=== PATIENT | female | born 1945 | race Caucasian/White ===

== ENCOUNTER 2017-01-07 09:52 | Emergency (ER) | payer MEDICARE, OTHER ==
[2017-01-07 09:58] VITALS: BP 129/51
[2017-01-07] MEDS ORDERED: OXYCODONE-ACETAMINOPHEN 5-325 MG TABLET PO ONE (10:32)
[2017-01-07] MEDS ORDERED: ONDANSETRON 4 MG TAB.RAPDIS PO ONE (10:32)
--- NOTE | 2017-01-07 10:34 | ER Document Report ---
HPI - HPI Patient complains to provider of: posterior left knee pain Onset: Other - 1 week Onset/Duration: Persistent, Worse Quality of pain: Achy Pain Level: 4 Context: 65-year-old female developed posterior left knee pain while traveling back from a road trip to [place]. It was aching in her left knee and her left hip. No low back pain. This morning when she stepped up with her right foot onto a stool and brought her left leg up she felt something very painful and sharp in her left knee like it wasn't fitting properly. Now she cannot extend it completely due to pain nor can she bear weight on it due to the pain. History of right lung cancer 2004. No chest pain or shortness of breath. No leg swelling. No history of PE or DVT although her mother had DVT. Associated Symptoms: None Exacerbated by: Denies Relieved by: Denies Similar symptoms previously: No Recently seen / treated by doctor: No - ROS ROS below otherwise negative: Yes Systems Reviewed and Negative: Yes All other systems reviewed and negative - REPRODUCTIVE Reproductive: DENIES: : - DERM Skin Color: Normal Past Medical History - General Information source: Patient - Social History Smoking Status: Former Smoker Frequency of alcohol use: None Drug Abuse: None Lives with: Spouse/Significant other Family History: Reviewed & Not Pertinent - Past Medical History Cardiac Medical History: Reports: Hx Hypertension Endocrine Medical History: Reports: Hx Diabetes Mellitus Type 1 Renal/ Medical History: Denies: Hx Peritoneal Dialysis Malignancy Medical History: Reports: Hx Lung Cancer GI Medical History: Reports: Hx Ulcer Past Surgical History: Reports: Hx Cholecystectomy, Hx Hysterectomy, Hx Tonsillectomy, Other - Partial right pneumonectomy - Immunizations Hx Diphtheria, Pertussis, Tetanus Vaccination: Yes Vertical Provider Document - CONSTITUTIONAL Agree With Documented VS: Yes Exam Limitations: No Limitations - INFECTION CONTROL TRAVEL OUTSIDE OF THE [place] IN LAST 30 DAYS: No - HEENT HEENT: Normocephalic - NECK Neck: Supple - RESPIRATORY Respiratory: Breath Sounds Normal, No Respiratory Distress O2 Sat by Pulse Oximetry: 97 - CARDIOVASCULAR Cardiovascular: Regular Rate, Regular Rhythm - MUSCULOSKELETAL/EXTREMETIES Musculoskeletal/Extremeties: Tender, No Edema, Edema. negative: Eccymosis Notes: Posterior left medial knee tender without being able to identify which structure is tender, unable to extend fully due to posterior knee pain. No hip tenderness. No low back tenderness. 2+ PT - NEURO Level of Consciousness: Awake, Alert - DERM Integumentary: Warm, Dry, No Rash Course - Re-evaluation Re-evalutation: 01/07/17 X-rays negative, the venous Doppler ultrasound was also negative. She states that the compressive wrap is helpful - Vital Signs Vital signs: Temp Pulse Resp BP Pulse Ox 97.9 F 85 16 129/51 H 97 01/07/17 09:54 01/07/17 09:54 01/07/17 09:54 01/07/17 09:54 01/07/17 09:54 Procedures - Immobilization Left Knee Time completed: 14:00 Immobilizer type: Rigo wrap Performed by: PCT Post-Proc Neuro Vasc Exam: Normal Alignment checked and good: Yes Discharge - Discharge Clinical Impression: Left knee sprain Qualifiers: Encounter type: initial encounter Involved ligament of knee: unspecified ligament Qualified Code(s): S83.92XA - Sprain of unspecified site of left knee, initial encounter Condition: Good Disposition: HOME, SELF-CARE Instructions: Suspected Internal Knee Injury ([facility]), Oral Narcotic Medication ( [facility]), Sprained Knee ([facility]), Rigo Wrap ([facility]) Additional Instructions: to er if worse compression rigo wrap for comfort use the walker see orthopedic doctor for follow up Cholo Westbrook NP/Dr. Westbrook should be able to order further testin if indicated (like MRI of the knee) Please complete the patient satisfaction survey if you get one, and return it.. If you do not receive a survey, then you can go to the [facility] website, [email or web address] and place your comments about your very good care. Thank you very much. It was a pleasure being your medical provider today. Prescriptions: Hydrocodone Bit/Acetaminophen [Hydrocodon-Acetaminophen 5-325] 1 - 2 each PO Q4HP PRN #20 tablet PRN Reason: Walker [Folding Walker] 1 each MC ASDIR PRN #1 each PRN Reason: Referrals: HARI WESTBROOK NP [Primary Care Provider] - Follow up in 3-5 days
[2017-01-07] MEDS ORDERED: HYDROCODONE/ACETAMINOPHEN 5-325 MG TABLET PO ONE (11:07)
== END 2017-01-07 14:17 | disposition home or self-care (01) ==
LOC: ER 09:52
DX: S83.92XA Sprain of unspecified site of left knee, initial encounter (principal); X58.XXXA Exposure to other specified factors, initial encounter; E10.9 Type 1 diabetes mellitus without complications; I10 Essential (primary) hypertension; Z85.118 Personal history of other malignant neoplasm of bronchus and lung; Z82.49 Family history of ischemic heart disease and other diseases of the circulatory system; Z87.891 Personal history of nicotine dependence
CPT/HCPCS: 99284; 93971; 73562; A9270 ×2; S0119

== ENCOUNTER → 2017-01-10 | Outpatient (CLI) | payer MEDICARE, OTHER | LOC: RAD 12:34 | PROVIDERS: ATTEND Nurse Practitioner Primary Care | DX: S89.92XA Unspecified injury of left lower leg, initial encounter (principal); M25.562 Pain in left knee; M25.462 Effusion, left knee; X58.XXXA Exposure to other specified factors, initial encounter ==

== ENCOUNTER 2018-09-12 11:49 | Emergency (ER) | payer MEDICARE, OTHER ==
--- NOTE | 2018-09-12 12:46 | ER Document Report ---
ED Medical Screen (RME) - General Chief Complaint: Foot Pain Stated Complaint: FOOT PAIN Time Seen by Provider: 09/12/18 12:36 Notes: This 73-year-old female diabetic was sent to the emergency room for further evaluation for left foot pain for the last 2 weeks with some erythema. She has had x-ray and ultrasound which were unremarkable. She had an MRI done today over at [facility]. She has a CD but does not have a report. She reports that she has had some fevers off and on. I have greeted and performed a rapid initial assessment of this patient. A comprehensive ED assessment and evaluation of the patient, analysis of test results and completion of the medical decision making process will be conducted by additional ED providers. TRAVEL OUTSIDE OF THE U.[place] IN LAST 30 DAYS: No - Related Data Allergies/Adverse Reactions: oxycodone Adverse Reaction (Verified 01/07/17 11:00) VOMITING Past Medical History - Past Medical History Cardiac Medical History: Reports: Hx Hypertension Denies: Hx Heart Attack Pulmonary Medical History: Denies: Hx Asthma Neurological Medical History: Denies: Hx Cerebrovascular Accident, Hx Seizures Endocrine Medical History: Reports: Hx Diabetes Mellitus Type 1, Hx Diabetes Mellitus Type 2 Renal/ Medical History: Denies: Hx Peritoneal Dialysis Malignancy Medical History: Reports: Hx Lung Cancer GI Medical History: Reports: Hx Ulcer. Denies: Hx Hepatitis, Hx Hiatal Hernia Infectious Medical History: Denies: Hx Hepatitis Past Surgical History: Reports: Hx Cholecystectomy, Hx Hysterectomy, Hx Tonsillectomy, Other - Partial right pneumonectomy. Denies: Hx Mastectomy, Hx Open Heart Surgery, Hx Pacemaker - Immunizations Hx Diphtheria, Pertussis, Tetanus Vaccination: Yes Physical Exam - Vital signs Vitals: Temp Pulse Resp BP Pulse Ox 98.0 F 86 18 109/91 H 100 09/12/18 11:56 09/12/18 11:56 09/12/18 11:56 09/12/18 11:56 09/12/18 11:56 Course - Vital Signs Vital signs: Temp Pulse Resp BP Pulse Ox 98.0 F 86 18 109/91 H 100 09/12/18 11:56 09/12/18 11:56 09/12/18 11:56 09/12/18 11:56 09/12/18 11:56 Doctor's Discharge - Discharge Referrals: DARIANA,HARI, SURGICAL NURSE PRACTITIONER [Primary Care Provider] - Follow up as needed
--- NOTE | 2018-09-12 13:17 | ER Document Report ---
ED General - General Chief Complaint: Foot Pain Stated Complaint: FOOT PAIN Time Seen by Provider: 09/12/18 12:36 TRAVEL OUTSIDE OF THE U.[place] IN LAST 30 DAYS: No - HPI Notes: Patient is a 73-year-old female with a history of hypertension and type 2 diabetes who presents to the ED complaining of left foot swelling, pain, redness, warmth over the last 2 weeks. Patient states that she has been on Levaquin for 5 days without significant improvement. Patient states that she has been eating and drinking without any difficulty. She is urinating normally and having normal bowel movements. Patient has not noticed any red streaking, abscess, or purulence. Patient states that she was evaluated at [facility] and had an unremarkable x-ray as well as ultrasound to look for blood clotting. Patient states that she did have an MRI performed today, but does not have the formal report. She had this done at [facility]. No other concerns or complaints. Denies any headache, fever, URI, sore throat, chest pain, palpitations, syncope, cough, shortness of breath, wheeze, dyspnea, abdominal pain, nausea/vomiting/diarrhea, urinary retention, dysuria, hematuria. - Related Data Allergies/Adverse Reactions: oxycodone Adverse Reaction (Verified 01/07/17 11:00) VOMITING Past Medical History - Social History Smoking Status: Never Smoker Family History: Reviewed & Not Pertinent Patient has suicidal ideation: No Patient has homicidal ideation: No - Past Medical History Cardiac Medical History: Reports: Hx Hypertension Denies: Hx Heart Attack Pulmonary Medical History: Denies: Hx Asthma Neurological Medical History: Denies: Hx Cerebrovascular Accident, Hx Seizures Endocrine Medical History: Reports: Hx Diabetes Mellitus Type 1, Hx Diabetes Mellitus Type 2 Renal/ Medical History: Denies: Hx Peritoneal Dialysis Malignancy Medical History: Reports: Hx Lung Cancer GI Medical History: Reports: Hx Ulcer. Denies: Hx Hepatitis, Hx Hiatal Hernia Infectious Medical History: Denies: Hx Hepatitis Past Surgical History: Reports: Hx Cholecystectomy, Hx Hysterectomy, Hx Tonsillectomy, Other - Partial right pneumonectomy. Denies: Hx Mastectomy, Hx Open Heart Surgery, Hx Pacemaker - Immunizations Hx Diphtheria, Pertussis, Tetanus Vaccination: Yes Review of Systems - Review of Systems -: Yes All other systems reviewed and negative Physical Exam - Vital signs Vitals: Temp Pulse Resp BP Pulse Ox 98.0 F 86 18 109/91 H 100 09/12/18 11:56 09/12/18 11:56 09/12/18 11:56 09/12/18 11:56 09/12/18 11:56 - Notes Notes: PHYSICAL EXAMINATION: GENERAL: Well-appearing, well-nourished and in no acute distress. LUNGS: Breath sounds clear to auscultation bilaterally and equal. No wheezes rales or rhonchi. HEART: Regular rate and rhythm without murmurs, rubs, gallops. ABDOMEN: Soft, nontender, nondistended abdomen. No guarding, no rebound. No masses appreciated. Normal bowel sounds present. No CVA tenderness bilaterally. Musculoskeletal: Left foot: FROM to passive/active. Strength 5+/5. N/V intact distal. Extremities: No cyanosis, clubbing, or edema b/l. Peripheral pulses 2+. Capillary refill less than 3 seconds. NEUROLOGICAL: Normal speech, normal gait. PSYCH: Normal mood, normal affect. SKIN: left foot: the dorsal foot is erythemic, warm, 2+ pitting edema, and associated tenderness w/o obvious fluctuance/streaks/purulence Course - Re-evaluation Re-evalutation: 09/12/18 16:02 I did have to speak with a radiologist from [facility] who stated that there does appear to be some erosion at the 1st MTP joint either OA or gout with some inflammatory changes consistent with possible cellulitis. No osteomyelitis or septic joint. Dr. Gamble did evaluate the patient as well and agrees with cellulitis. Give 1g vanc and plan for discharge. Patient is an afebrile, well-hydrated, 73-year-old female who presents to the ED with cellulitis to the left foot which could be secondary to gout of the left first MTP joint. Vitals are acceptable without any significant tachycardia, tachypnea, or hypoxia. PE is otherwise unremarkable for any neurovascular compromise, obvious tendon/leg rupture, obvious fracture/dislocation, septic joint. Patient has not had any worsening symptoms since initial onset of the infection, but is without improvement. CBC, CMP are unremarkable for any acute pathology. Patient does not meet Sirs criteria. She is nontoxic-appearing and is tolerating p.o. without difficulty. MRI results as above. Patient is a well -controlled diabetic. Patient does present with renal failure so we will avoid NSAIDs at this time. We will try her on a 4-day course of prednisone 40 mg daily with the notion that her sugars may go up and patient needs to monitor very closely and avoid foods high glucose/carb/sugar. We will also send her home with a prescription for Keflex and Bactrim and she may discontinue her Levaquin. Recheck with your PCM in 2-3 days. Return to the emergency department with any other worsening/concerning symptoms as reviewed. Patient is in agreement. - Vital Signs Vital signs: Temp Pulse Resp BP Pulse Ox 98.0 F 85 18 110/85 100 09/12/18 13:44 09/12/18 13:44 09/12/18 13:44 09/12/18 13:44 09/12/18 13:44 - Laboratory Result Diagrams: 09/12/18 12:53 09/12/18 12:53 Laboratory results interpreted by me: 09/12/18 09/12/18 12:53 12:53 BUN 34 H Creatinine 1.68 H Est GFR ( Amer) 36 L Est GFR (Non-Af Amer) 30 L Urine Glucose (UA) >=500 H Discharge - Discharge Clinical Impression: Cellulitis of left foot Condition: Stable Disposition: HOME, SELF-CARE Instructions: Cellulitis ([facility]) Additional Instructions: Your sugar will be increased while on the steroid so you need to monitor closely and avoid foods and drinks that are high in sugar content. You may stop taking the Levaquin at this time as we will be giving you new antibiotics. Elevate your foot regularly Keep the skin clean Wash with soap and water Tylenol/ibuprofen if needed Triple antibiotic ointment daily for any break in the skin Take medication as directed Monitor for any worsening symptoms Recheck with your PCM in 2-3 days Return to the ED with any worsening symptoms and/or development of fever, headache, chest pain, palpitations, syncope, shortness of breath, trouble breathing, abdominal pain, n/v/d, abscess, purulent discharge, red streaks, worsening swelling, or other worsening symptoms that are concerning to you. Prescriptions: Cephalexin Monohydrate [Keflex 500 mg Capsule] 500 mg PO TID #30 capsule Prednisone [Deltasone 20 mg Tablet] 2 tab PO DAILY 4 Days #8 tablet Sulfamethoxazole/Trimethoprim [Bactrim Ds Tablet] 1 each PO BID #20 tablet Referrals: HARI WESTBROOK NP [Primary Care Provider] - 09/14/18
[2018-09-12 13:22] LABS: ABSOLUTE EOSINOPHILS # (AUTO) 0.4 10^3/uL (0.0-0.6); ABSOLUTE LYMPHOCYTES (AUTO) 2.1 10^3/uL (0.5-4.7); ABSOLUTE MONOCYTES (AUTO) 0.5 10^3/uL (0.1-1.4); ABSOLUTE NEUT (AUTO) 7.1 10^3/uL (1.7-8.2); BASOPHILS % (AUTO) 0.3 % (0-2); EOSINOPHILS % (AUTO) 3.9 % (0-6); HEMATOCRIT 38.6 % (36.0-47.0); MEAN CORPUSCULAR HEMOGLOBIN 29.1 pg (27.0-33.4); MEAN CORPUSCULAR HGB CONC 33.6 g/dL (32.0-36.0); MEAN CORPUSCULAR VOLUME 87 fl (80-97); MONOCYTES % (AUTO) 5.3 % (3-13); PLATELET COUNT 370 10^3/uL (150-450); RED BLOOD COUNT 4.45 10^6/uL (3.72-5.28); RED CELL DISTRIBUTION WIDTH 13.9 % (11.5-14.0); SEGMENTED NEUTROPHILS % (AUTO) 69.5 % (42-78); TOTAL CELLS COUNTED % (AUTO) 100 %; WHITE BLOOD COUNT 10.2 10^3/uL (4.0-10.5)
[2018-09-12 13:27] LABS: APPEARANCE,URINE CLEAR; BILIRUBIN,URINE NEGATIVE (NEGATIVE); COLOR,URINE COLORLESS; GLUCOSE, URINE >=500 mg/dL (NEGATIVE); KETONES,URINE NEGATIVE (NEGATIVE); LEUKOCYTE ESTERASE,URINE NEGATIVE (NEGATIVE); NITRITE,URINE NEGATIVE (NEGATIVE); PROTEIN,URINE NEGATIVE (NEGATIVE); URINE SPECIFIC GRAVITY 1.005; UROBILINOGEN,URINE NEGATIVE mg/dL (<2.0)
[2018-09-12 13:43] LABS: ALANINE AMINOTRANSFERASE 16 U/L (9-52); ALBUMIN 4.1 g/dL (3.5-5.0); ALKALINE PHOSPHATASE 104 U/L (38-126); ANION GAP 12 (5-19); ASPARTATE AMINO TRANSFERASE 20 U/L (14-36); BILIRUBIN,DIRECT 0.3 mg/dL (0.0-0.4); BILIRUBIN,TOTAL 0.5 mg/dL (0.2-1.3); BLOOD UREA NITROGEN 34 mg/dL (7-20); CARBON DIOXIDE 23 mmol/L (22-30); CHLORIDE 103 mmol/L (98-107); GLUCOSE 109 mg/dL (75-110); POTASSIUM 4.7 mmol/L (3.6-5.0); SODIUM 137.8 mmol/L (137-145); TOTAL PROTEIN 6.9 g/dL (6.3-8.2)
[2018-09-12] MEDS ORDERED: VANCOMYCIN HCL INJ 1000 MG VIAL IV ONE (15:54)
[2018-09-12 17:10] VITALS: BP 110/80
== END 2018-09-12 17:10 | disposition home or self-care (01) ==
LOC: ER 11:49
DX: L03.116 Cellulitis of left lower limb (principal); M79.672 Pain in left foot; M79.89 Other specified soft tissue disorders; I10 Essential (primary) hypertension; E11.9 Type 2 diabetes mellitus without complications; Z88.6 Allergy status to analgesic agent; Z85.118 Personal history of other malignant neoplasm of bronchus and lung
CPT/HCPCS: 36415; 87040; 85025; 85652; 80053; 81001; J3370

== ENCOUNTER → 2018-10-23 | Outpatient (CLI) | payer MEDICARE, OTHER ==
[2018-10-23 11:36] LABS: APPEARANCE,URINE CLEAR; BILIRUBIN,URINE NEGATIVE (NEGATIVE); COLOR,URINE STRAW; GLUCOSE, URINE >=500 mg/dL (NEGATIVE); KETONES,URINE NEGATIVE (NEGATIVE); LEUKOCYTE ESTERASE,URINE NEGATIVE (NEGATIVE); NITRITE,URINE NEGATIVE (NEGATIVE); PROTEIN,URINE NEGATIVE (NEGATIVE); URINE SPECIFIC GRAVITY 1.011; UROBILINOGEN,URINE NEGATIVE mg/dL (<2.0)
[2018-10-23 11:47] LABS: PHOSPHORUS 4.5 mg/dL (2.5-4.5)
[2018-10-24 14:29] LABS: MICROALBUMIN URINE <3.0 ug/mL (Not Estab.)
== END ==
LOC: OD 10:49
PROVIDERS: ATTEND Nurse Practitioner Primary Care
DX: E11.22 Type 2 diabetes mellitus with diabetic chronic kidney disease (principal); N18.3 Chronic kidney disease, stage 3 (moderate)
CPT/HCPCS: 36415; 81001; 82043; 82570; 83735; 83970; 84100

== ENCOUNTER → 2018-12-24 | Outpatient (CLI) | payer MEDICARE, OTHER ==
[2018-12-24 09:49] LABS: ALANINE AMINOTRANSFERASE 40 U/L (9-52); ALBUMIN 4.1 g/dL (3.5-5.0); ALKALINE PHOSPHATASE 104 U/L (38-126); ANION GAP 10 (5-19); ASPARTATE AMINO TRANSFERASE 24 U/L (14-36); BILIRUBIN,DIRECT 0.3 mg/dL (0.0-0.4); BILIRUBIN,TOTAL 0.4 mg/dL (0.2-1.3); BLOOD UREA NITROGEN 31 mg/dL (7-20); CALCIUM 10.7 mg/dL (8.4-10.2); CARBON DIOXIDE 28 mmol/L (22-30); CHLORIDE 100 mmol/L (98-107); GLUCOSE 135 mg/dL (75-110); POTASSIUM 5.3 mmol/L (3.6-5.0); SODIUM 138.1 mmol/L (137-145); URIC ACID 7.6 mg/dL (2.5-7.5)
== END ==
LOC: OD 08:57
PROVIDERS: ATTEND Obstetrics & Gynecology
DX: E79.0 Hyperuricemia without signs of inflammatory arthritis and tophaceous disease (principal)
CPT/HCPCS: 36415; 80053; 84550

== ENCOUNTER 2019-05-22 11:21 | Emergency (ER) | payer MEDICARE, OTHER ==
--- NOTE | 2019-05-22 12:51 | ER Document Report ---
ED Medical Screen (RME) - General Chief Complaint: Foot Pain Stated Complaint: LEG PAIN Time Seen by Provider: 05/22/19 12:47 Primary Care Provider: WILIAM WESTBROOK MD [Primary Care Provider] - Follow up as needed Information source: Patient Notes: Patient presents with left foot pain swelling and redness for the past 5 days. Patient denies any known injury although does have a skin irregularity to dorsal aspect of left great toe. Patient does report a history of diabetes, hypertension, thyroid as well as gout. I have greeted and performed a rapid initial assessment of this patient. A comprehensive ED assessment and evaluation of the patient, analysis of test results and completion of the medical decision making process will be conducted by additional ED providers. TRAVEL OUTSIDE OF THE [place] IN LAST 30 DAYS: No - Related Data Allergies/Adverse Reactions: oxycodone Adverse Reaction (Verified 05/22/19 11:22) VOMITING Past Medical History - Social History Frequency of alcohol use: None Drug Abuse: None - Past Medical History Cardiac Medical History: Reports: Hx Hypertension Denies: Hx Heart Attack Pulmonary Medical History: Denies: Hx Asthma Neurological Medical History: Denies: Hx Cerebrovascular Accident, Hx Seizures Endocrine Medical History: Reports: Hx Diabetes Mellitus Type 1, Hx Diabetes Mellitus Type 2 Renal/ Medical History: Denies: Hx Peritoneal Dialysis Malignancy Medical History: Reports: Hx Lung Cancer GI Medical History: Reports: Hx Ulcer. Denies: Hx Hepatitis, Hx Hiatal Hernia Infectious Medical History: Denies: Hx Hepatitis Past Surgical History: Reports: Hx Cholecystectomy, Hx Hysterectomy, Hx Tonsillectomy, Other - Partial right pneumonectomy. Denies: Hx Mastectomy, Hx Open Heart Surgery, Hx Pacemaker - Immunizations Hx Diphtheria, Pertussis, Tetanus Vaccination: Yes Physical Exam - Vital signs Vitals: Temp Pulse Resp BP Pulse Ox 97.5 F 81 18 149/83 H 98 05/22/19 11:26 05/22/19 11:05/22/19 11:05/22/19 11:05/22/19 11:26 - General Notes: Left foot swelling with mild erythema. Irregularity of skin noted to dorsal aspect of left great toe. Course - Vital Signs Vital signs: Temp Pulse Resp BP Pulse Ox 97.5 F 81 18 149/83 H 98 05/22/19 11:26 05/22/19 11:26 05/22/19 11:26 05/22/19 11:26 05/22/19 11:26 Doctor's Discharge - Discharge Referrals: WILIAM WESTBROOK MD [Primary Care Provider] - Follow up as needed
[2019-05-22 13:34] LABS: ABSOLUTE EOSINOPHILS # (AUTO) 0.4 10^3/uL (0.0-0.6); ABSOLUTE LYMPHOCYTES (AUTO) 1.7 10^3/uL (0.5-4.7); ABSOLUTE MONOCYTES (AUTO) 0.5 10^3/uL (0.1-1.4); ABSOLUTE NEUT (AUTO) 6.4 10^3/uL (1.7-8.2); BASOPHILS % (AUTO) 0.4 % (0-2); EOSINOPHILS % (AUTO) 4.4 % (0-6); HEMATOCRIT 37.9 % (36.0-47.0); HEMOGLOBIN 12.6 g/dL (12.0-15.5); MEAN CORPUSCULAR HEMOGLOBIN 28.8 pg (27.0-33.4); MEAN CORPUSCULAR HGB CONC 33.3 g/dL (32.0-36.0); MEAN CORPUSCULAR VOLUME 87 fl (80-97); MONOCYTES % (AUTO) 5.5 % (3-13); PLATELET COUNT 303 10^3/uL (150-450); RED BLOOD COUNT 4.37 10^6/uL (3.72-5.28); RED CELL DISTRIBUTION WIDTH 14.2 % (11.5-14.0); SEGMENTED NEUTROPHILS % (AUTO) 70.7 % (42-78); TOTAL CELLS COUNTED % (AUTO) 100 %; WHITE BLOOD COUNT 9.1 10^3/uL (4.0-10.5)
[2019-05-22 13:43] LABS: ALKALINE PHOSPHATASE 105 U/L (38-126); ANION GAP 10 (5-19); ASPARTATE AMINO TRANSFERASE 23 U/L (14-36); BILIRUBIN,DIRECT 0.3 mg/dL (0.0-0.4); BILIRUBIN,TOTAL 0.4 mg/dL (0.2-1.3); BLOOD UREA NITROGEN 22 mg/dL (7-20); CALCIUM 9.9 mg/dL (8.4-10.2); CARBON DIOXIDE 27 mmol/L (22-30); CHLORIDE 103 mmol/L (98-107); GLUCOSE 122 mg/dL (75-110); POTASSIUM 5.2 mmol/L (3.6-5.0); TOTAL PROTEIN 6.6 g/dL (6.3-8.2); URIC ACID 6.3 mg/dL (2.5-7.5)
--- NOTE | 2019-05-22 14:36 | RADIOLOGY REPORT (SQ) ---
EXAM DESCRIPTION: FOOT LEFT COMPLETE COMPLETED DATE/TIME: 05/22/2019 1:49 pm REASON FOR STUDY: L foot pain, swelling COMPARISON: 04/18/2015 NUMBER OF VIEWS: Three views. TECHNIQUE: AP, lateral and oblique radiographic images acquired of the left foot. LIMITATIONS: None. FINDINGS: MINERALIZATION: Normal. BONES: No acute fracture or dislocation. No worrisome bone lesions. JOINTS: No effusions. SOFT TISSUES: No soft tissue swelling. No foreign body. OTHER: No other significant finding. IMPRESSION: NO RADIOGRAPHIC EVIDENCE OF ACUTE INJURY. TECHNICAL DOCUMENTATION: JOB ID: [id number] [employer]- All Rights Reserved Reading location - IP/workstation name: [email or web address]
[2019-05-22] MEDS ORDERED: CLINDAMYCIN HCL 150 MG CAPSULE PO ONE (17:05)
--- NOTE | 2019-05-22 17:05 | ER Document Report ---
ED General - General Chief Complaint: Foot Pain Stated Complaint: LEG PAIN Time Seen by Provider: 05/22/19 12:47 Primary Care Provider: WILIAM WESTBROOK MD [Primary Care Provider] - Follow up in 1 week Notes: Patient is a 73-year-old female who presents to the emergency department with a chief complaint of left foot swelling. She states that she has history of cellulitis in the past. She states that her whole foot has been hurting. She states more the ball of her foot hurts. She does have a history of hypertensio n, gout, and diabetes. TRAVEL OUTSIDE OF THE [place] IN LAST 30 DAYS: No - Related Data Allergies/Adverse Reactions: oxycodone Adverse Reaction (Verified 05/22/19 11:22) VOMITING Past Medical History - General Information source: Patient - Social History Smoking Status: Former Smoker Frequency of alcohol use: None Drug Abuse: None Family History: Reviewed & Not Pertinent Patient has suicidal ideation: No Patient has homicidal ideation: No - Past Medical History Cardiac Medical History: Reports: Hx Hypertension Denies: Hx Heart Attack Pulmonary Medical History: Denies: Hx Asthma Neurological Medical History: Denies: Hx Cerebrovascular Accident, Hx Seizures Endocrine Medical History: Reports: Hx Diabetes Mellitus Type 1, Hx Diabetes Mellitus Type 2 Renal/ Medical History: Denies: Hx Peritoneal Dialysis Malignancy Medical History: Reports: Hx Lung Cancer GI Medical History: Reports: Hx Ulcer. Denies: Hx Hepatitis, Hx Hiatal Hernia Infectious Medical History: Denies: Hx Hepatitis Past Surgical History: Reports: Hx Cholecystectomy, Hx Hysterectomy, Hx Tonsillectomy, Other - Partial right pneumonectomy. Denies: Hx Mastectomy, Hx Open Heart Surgery, Hx Pacemaker - Immunizations Hx Diphtheria, Pertussis, Tetanus Vaccination: Yes Review of Systems - Review of Systems Notes: REVIEW OF SYSTEMS: CONSTITUTIONAL : Denies recent illness. Denies recent unintentional weight loss. Denies fever, chills, or sweats. EENT: Denies eye, ear, throat, or mouth pain, discharge, or symptoms. Denies nasal or sinus congestion. CARDIOVASCULAR: Denies chest pain. RESPIRATORY: Denies shortness of breath, cough, congestion, difficulty breathing, or wheezing. GASTROINTESTINAL: Denies nausea, vomiting, and diarrhea. Denies abdominal pain. Denies constipation. GENITOURINARY: Denies difficulty urinating, burning, blood in urine, urgency or frequency. MUSCULOSKELETAL: Denies neck and back pain. Denies joint pain or swelling. SKIN: See HPI HEMATOLOGIC : Denies easy bruising or bleeding. LYMPHATIC: Denies swollen, painful, enlarged glands. NEUROLOGICAL: Denies no numbness or tingling denies weakness. Denies headache. Denies altered mental status. Denies alteration in speech. PSYCHIATRIC: Denies stress, anxiety, alteration in sleep patterns, or depression. All other systems reviewed and negative. Physical Exam - Vital signs Vitals: Temp Pulse Resp BP Pulse Ox 97.5 F 81 18 149/83 H 98 05/22/19 11:26 05/22/19 11:26 05/22/19 11:26 05/22/19 11:26 05/22/19 11:26 - Notes Notes: PHYSICAL EXAMINATION: GENERAL: Appears well, healthy, well-nourished, no acute distress. HEAD: Normocephalic, atraumatic. EYES: PERRL, conjunctiva normal, all extraocular movements intact, sclera nonicteric ENT: Moist mucous membranes. NECK: Supple, no noticeable swelling, redness, rash. Normal range of motion. LUNGS: Equal breath sounds bilaterally and clear to auscultation. No wheezes rales or rhonchi. CARDIOVASCULAR: S1-S2, regular rate, regular rhythm. Radial pulses 2+, normal. ABDOMEN: Normoactive bowel sounds. Soft, nontender, no guarding, no rebound tenderness, and no masses palpated. EXTREMITIES: Normal strength and range of motion, no pitting or edema. No cyanosis. NEUROLOGICAL: Moves all extremities upon command. Strength 5/5 in all extremities. PSYCH: Normal mood, normal affect. SKIN: Warm, dry. Mild erythema at the dorsal aspect of distal left foot. Normal skin turgor. Course - Re-evaluation Re-evalutation: 05/22/19 17:19 Patient's white blood cell count is unremarkable. The rest of her hematology is stable. Her potassium is mildly elevated at 5.2. This may be due to dehydration. Patient states her first time she drank water today was when she got into the exam room here in the emergency department. Patient has an irregularity of her skin on the dorsal aspect of her left foot. At this time, the patient will be started on clindamycin. The prescription that was given to her by her primary care provider asked for her to receive a dose of vancomycin. I spoke to her in regards to starting IV vancomycin and that it was inappropriate unless she was going to be admitted to the hospital. At this time, the patient does not meet admission criteria. She will be started on clindamycin. Her uric acid level 6.3, ruling out an acute gout attack. Follow- up precautions were given. Verbal discharge instructions were given to the patient. They verbalized understanding. They are stable for discharge. - Vital Signs Vital signs: Temp Pulse Resp BP Pulse Ox 97.9 F 78 17 141/71 H 95 05/22/19 18:19 05/22/19 18:19 05/22/19 18:19 05/22/19 18:19 05/22/19 18:19 - Laboratory Result Diagrams: 05/22/19 12:58 05/22/19 12:58 Laboratory results interpreted by me: 05/22/19 05/22/19 12:58 12:58 RDW 14.2 H Potassium 5.2 H BUN 22 H Est GFR (MDRD) Non-Af 53 L Glucose 122 H Discharge - Discharge Clinical Impression: Cellulitis Qualifiers: Site of cellulitis: extremity Site of cellulitis of extremity: lower extremity Laterality: left Qualified Code(s): L03.116 - Cellulitis of left lower limb Condition: Stable Disposition: HOME, SELF-CARE Additional Instructions: You were seen today in the emergency department for foot pain. Your x-ray was normal. Your uric acid level is normal. You are being started on clindamycin, medication to help clear up the cellulitis. Please follow-up with your primary care provider in regards to this visit. If you feel your foot is not getting any better, your toes turn purple or blue again, or have any symptoms that are worrisome to you, please return to the emergency department. Prescriptions: Clindamycin HCl [Cleocin 150 mg Capsule] 300 mg PO Q6 7 Days #56 capsule Referrals: WILIAM WESTBROOK MD [Primary Care Provider] - Follow up in 1 week
[2019-05-22 18:19] VITALS: BP 141/71
== END 2019-05-22 18:19 | disposition home or self-care (01) ==
LOC: ER 11:21
DX: L03.116 Cellulitis of left lower limb (principal); I10 Essential (primary) hypertension; E11.9 Type 2 diabetes mellitus without complications; Z88.6 Allergy status to analgesic agent; Z90.710 Acquired absence of both cervix and uterus; Z90.49 Acquired absence of other specified parts of digestive tract
CPT/HCPCS: 99283; 36415; 84550; 85025; 80053; 73630; A9270

== ENCOUNTER → 2020-06-22 | Outpatient (CLI) | payer MEDICARE, OTHER ==
[2020-06-22 17:45] LABS: ABSOLUTE EOSINOPHILS # (AUTO) 0.3 10^3/uL (0.0-0.6); ABSOLUTE MONOCYTES (AUTO) 0.5 10^3/uL (0.1-1.4); BASOPHILS % (AUTO) 0.5 % (0-2); EOSINOPHILS % (AUTO) 3.1 % (0-6); HEMATOCRIT 41.8 % (36.0-47.0); HEMOGLOBIN 13.9 g/dL (12.0-15.5); LYMPHOCYTES % (AUTO) 20.3 % (13-45); MEAN CORPUSCULAR HEMOGLOBIN 28.9 pg (27.0-33.4); MEAN CORPUSCULAR HGB CONC 33.2 g/dL (32.0-36.0); MEAN CORPUSCULAR VOLUME 87 fl (80-97); MONOCYTES % (AUTO) 5.1 % (3-13); PLATELET COUNT 313 10^3/uL (150-450); RED CELL DISTRIBUTION WIDTH 14.5 % (11.5-14.0); TOTAL CELLS COUNTED % (AUTO) 100 %; WHITE BLOOD COUNT 9.8 10^3/uL (4.0-10.5)
[2020-06-22 18:03] LABS: ALBUMIN 4.3 g/dL (3.5-5.0); ALKALINE PHOSPHATASE 109 U/L (38-126); ANION GAP 11 (5-19); ASPARTATE AMINO TRANSFERASE 22 U/L (14-36); BILIRUBIN,DIRECT 0.3 mg/dL (0.0-0.4); BILIRUBIN,TOTAL 0.5 mg/dL (0.2-1.3); BLOOD UREA NITROGEN 25 mg/dL (7-20); CARBON DIOXIDE 25 mmol/L (22-30); CHLORIDE 101 mmol/L (98-107); GLUCOSE 146 mg/dL (75-110); POTASSIUM 5.2 mmol/L (3.6-5.0); TOTAL PROTEIN 6.4 g/dL (6.3-8.2)
== END ==
LOC: OD 15:56
PROVIDERS: ATTEND Physician Assistant
DX: Z11.0 Encounter for screening for intestinal infectious diseases (principal); I10 Essential (primary) hypertension
CPT/HCPCS: 36415; 80053; 85025; 87070